=== PATIENT | female | born 1990 ===

== ENCOUNTER 2025-08-27 06:24 | Day surgery (SDC) | payer OTHER ==
[2025-08-27] VITALS (14 sets, daily range): BP systolic 103–134; BP diastolic 46–91
[~2025-08-27] VITALS: Ht 160 cm; Wt 51.8 kg
[~2025-08-27 06:24] MED LIST: ACET500 PO; BCP; CEPH500 PO; CIPR500 PO; CeFAZolin Sodium 2,000 MG in NS 100 ML IV SCH; DEPO-TESTO200 MG/1 M IM; HYDACE5 PO; IBUP800 PO; KOURZEQ5 GM TOP; MAGNESIUM OXID500 MG PO; ONDA4ODT MM; OXYACE5T PO; OXYC5 PO; PROG100 PO; PROM25 PO; RXHYDACE PO; SULTRIDS PO
[2025-08-27] MEDS ORDERED: Rocuronium Bromide 10 MG/ML 5ML Injection IV ONE (06:33)
[2025-08-27] MEDS ORDERED: Dexamethasone Sod Phos 10 MG/ML 1ML VIAL ONE (06:33)
[2025-08-27] MEDS ORDERED: Ondansetron HCl 2 MG / ML 2ML Vial ONE (06:33)
[2025-08-27] MEDS ORDERED: Phenylephrine HCl 100 MCG/ML-NS 10MLSYR (1MG/10ML) ONE (06:34)
[2025-08-27] MEDS ORDERED: Glycopyrrolate 0.2 MG/ML 5ML VIAL ONE (06:34)
[2025-08-27] MEDS ORDERED: Ketorolac Tromethamine 30mg Vial ONE (06:35)
[2025-08-27] MEDS ORDERED: FentaNYL Citrate 50 MCG/ML 5 ML Injection ONE (06:36)
[2025-08-27] MEDS ORDERED: Midazolam HCl 1MG / ML 2ML Vial ONE (06:36)
[2025-08-27] MEDS ORDERED: Sugammadex Sodium 200 MG/2ML SDV (100 MG/ML) ONE (06:37)
--- NOTE | 2025-08-27 06:58 | NUR ---
Ambulatory in Day Surgery History, Chart, Medications and Allergies reviewed before start of procedure. Pre-Op teaching done. Pt verbalizes understanding. Patient States Post-Procedure ride home has been arranged.
[2025-08-27] MEDS ORDERED: Bupivacaine 0.25% Epi 1:200000 30 ML Vial ONE (07:09)
--- NOTE | 2025-08-27 09:55 | NUR ---
WEDDING RING REMOVED AND PLACED IN PATIENTS WALLET.
[2025-08-27] MEDS ORDERED: HYDROmorphone HCl/Pf 1MG SYR IV PRN (11:40)
[2025-08-27] MEDS ORDERED: Metoclopramide HCl 5MG / ML 2ML Vial IV PRN (11:40)
[2025-08-27] MEDS ORDERED: FLU VACC TS2025-26(6MOS UP)/PF 45 MCG/0.5 ML SYRINGE IM SCH (11:40)
[2025-08-27] MEDS ORDERED: Naloxone HCl 0.4MG / ML 1ML Vial IV PRN (11:45)
[2025-08-27] MEDS ORDERED: Ondansetron HCl 2 MG / ML 2ML Vial IV PRN (11:45)
[2025-08-27] MEDS ORDERED: Ketorolac Tromethamine 30mg Vial IV SCH (12:00)
--- NOTE | 2025-08-27 12:34 | NUR ---
POST-OP PATIENT ARRIVES TO ROOM 226 @1145, REPORTS PAIN 03/19 DENIES NAUSEA. 5 LAP SITES WITH WOUND GLUE C/D/I. VSS. TOLERATING SIP OF WATER AND CRACKERS. IVF RUNNING TKO. K-PAD IN PLACE. MEDICATED PER EMAR WITH PO MEDS. CALL LIGHT IN REACH
[2025-08-27] MEDS ORDERED: Tetracaine HCl/Pf 0.5% Opth Soln 4 ml LEFTEYE PRN (13:50)
--- NOTE | 2025-08-27 16:10 | NUR ---
DISCHARGE PATIENT TOLERATING PO INTAKE, VOIDING SPONTANEOUSLY. MEDICATED PER EMAR FOR PAIN. LAP SITES C/D/I. NO BLEEDING NOTED ON HUAN-PAD. VSS. ALL DC INSTRUCTIONS READ AND SIGNED, IV TAKEN OUT INTACT. AND PATIENT IS WHEELED OUT TO AWAITING CAR.
[2025-08-28] MEDS ORDERED: Enoxaparin 40 MG/0.4 ML SYR SC SCH (09:00)
[2025-08-28] MEDS ORDERED: Polyethylene Glycol 3350 17 gm PO SCH (09:00)
== END 2025-08-27 15:56 | disposition home or self-care (01) ==
LOC: ORSCMMR 06:24 → ORD 07:30 → ORSCMMR 07:30 → SURS 11:50 → ORSCMMR 15:56
PROVIDERS: Obstetrics & Gynecology
PROC: 0UT7FZZ Resection of Bilateral Fallopian Tubes, Via Natural or Artificial Opening With Percutaneous Endoscopic Assistance (ICD-10-PCS; principal; 2025-08-27 07:30)
PROC: 0UT1FZZ Resection of Left Ovary, Via Natural or Artificial Opening With Percutaneous Endoscopic Assistance (ICD-10-PCS; principal; 2025-08-27 07:30)
PROC: 0UT9FZZ Resection of Uterus, Via Natural or Artificial Opening With Percutaneous Endoscopic Assistance (ICD-10-PCS; principal; 2025-08-27 07:30)
DX: N93.9 Abnormal uterine and vaginal bleeding, unspecified (principal); D25.9 Leiomyoma of uterus, unspecified; N73.6 Female pelvic peritoneal adhesions (postinfective); N83.12 Corpus luteum cyst of left ovary; N83.8 Other noninflammatory disorders of ovary, fallopian tube and broad ligament
CPT/HCPCS: 86850; 86900; 86901; 86923; 88307; A9270; J0690; J1100; J1885; J2250; J2371; J2405; J2704; J3010; J7120